=== PATIENT | male | born 1955 | race African-American/Black ===

== ENCOUNTER 2017-09-21 19:44 | Emergency (ER) | payer SELFPAY ==
[~2017-09-21] VITALS: Ht 177.8 cm; Wt 99.8 kg
[~2017-09-21 19:44] MED LIST: ERYTHROMYCIN1 G1 RIGHT EYE; NKM; VICODIN 5-3001 EACH ORAL
[2017-09-21 19:56] VITALS: BP 166/109
[2017-09-21] MEDS ORDERED: Lidocaine 1% Plain 30 ml INJ ONE (20:45)
[2017-09-21 20:55] VITALS: BP 158/98
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
[2017-09-21 21:55] VITALS: BP 167/102
[2017-09-21] MEDS ORDERED: NAPROXEN250 MG ORAL (21:55)
[2017-09-21 22:45] VITALS: BP 167/102
== END 2017-09-21 22:45 | disposition home or self-care (01) ==
LOC: EDBD 19:44 → EMR 20:47
DX: S01.81XA Laceration without foreign body of other part of head, initial encounter (principal); I10 Essential (primary) hypertension; Y04.2XXA Assault by strike against or bumped into by another person, initial encounter
CPT/HCPCS: 12013; 99282; J2001

== ENCOUNTER 2017-09-30 19:16 | Emergency (ER) | payer SELFPAY ==
[~2017-09-30] VITALS: Ht 177.8 cm; Wt 99.8 kg
[~2017-09-30 19:16] MED LIST changes: +NAPROXEN250 MG ORAL
[2017-09-30] MEDS ORDERED: UNOBMED (19:24)
[2017-09-30 19:30] VITALS: BP 128/87
[2017-09-30 19:45] VITALS: BP 134/87
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
[2017-09-30] MEDS ORDERED: BACITRACIN-P28.35 GM TP (19:48)
== END 2017-09-30 19:45 | disposition home or self-care (01) ==
LOC: EMR 19:38
DX: M79.89 Other specified soft tissue disorders (principal); Z48.02 Encounter for removal of sutures
CPT/HCPCS: 99282

== ENCOUNTER 2017-10-01 10:44 | Emergency (ER) | payer OTHER ==
[~2017-10-01] VITALS: Ht 177.8 cm; Wt 99.8 kg
[~2017-10-01 10:44] MED LIST changes: +BACITRACIN-P28.35 GM TP; +UNOBMED
[2017-10-01 10:52] VITALS: BP 129/84
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
[2017-10-01 12:36] VITALS: BP 125/79
[2017-10-01 12:37] VITALS: BP 129/84
== END 2017-10-01 12:38 | disposition home or self-care (01) ==
LOC: EMR 11:10
DX: H57.12 Ocular pain, left eye (principal); I10 Essential (primary) hypertension
CPT/HCPCS: 99282

== ENCOUNTER 2018-03-01 12:17 | Emergency (ER) | payer OTHER ==
[~2018-03-01] VITALS: Ht 177.8 cm; Wt 99.8 kg
[2018-03-01 12:47] VITALS: BP 108/77
[2018-03-01] MEDS ORDERED: IBUPROFEN600 MG ORAL (13:38)
[2018-03-01] MEDS ORDERED: AMOXICILLIN500 MG ORAL (13:38)
[2018-03-01 13:40] VITALS: BP 108/77
--- NOTE | 2018-03-01 18:21 | Emergency Room Report ---
History of Present Illness General Chief Complaint: Headache Source: Patient Present Illness HPI The patient is a 62-year-old male presenting for symptoms including headache, sore throat, and cough for the past one week. Headache described as a 5 out of 10 dull ache primarily to the right side of the head. No known provoking factors. He denies neck pain or stiffness. Sore throat described as well as a 5 out of 10 dull ache. Worse with swallowing. He admits to a dry cough. He denies other symptoms including N, V, F, chills, SOB, photophobia, dizziness , blurred vision Allergies: Coded Allergies: No Known Allergies (Unverified , 02/06/16) Patient History Past Medical History: see triage record Pertinent Family History: none Reviewed Nursing Documentation: PMH: Agreed; PSxH: Agreed Nursing Documentation-PMH Past Medical History: No History, Except For Hx Hypertension: Yes Review of Systems All Other Systems: negative except mentioned in HPI Physical Exam Vital Signs Date Time Temp Pulse Resp B/P (MAP) Pulse Ox O2 Delivery O2 Flow Rate FiO2 03/01/18 12:30 48 20 108/77 97 Room Air Sp02 EP Interpretation: reviewed, normal General Appearance: no apparent distress, alert, GCS 15, non-toxic Head: normocephalic, atraumatic Eyes: bilateral eye normal inspection, bilateral eye PERRL, bilateral eye EOMI ENT: hearing grossly normal, no angioedema, normal voice, uvula midline, tonsillar swelling, pharyngeal erythema Neck: full range of motion, supple/symm/no masses Respiratory: chest non-tender, lungs clear, normal breath sounds, speaking full sentences Cardiovascular #1: regular rate, rhythm, no edema Musculoskeletal: back normal, gait/station normal, normal range of motion, non- tender Neurologic: alert, oriented x3, responsive, motor strength/tone normal, sensory intact, speech normal Psychiatric: judgement/insight normal, memory normal, mood/affect normal, no suicidal/homicidal ideation Skin: normal color, no rash, warm/dry, well hydrated Lymphatic: no adenopathy Medical Decision Making PA Attestation Dr. Orourke is my supervising physician. Patient management was discussed with my supervising physician Diagnostic Impression: Primary Impression: Pharyngitis Qualified Codes: J02.9 - Acute pharyngitis, unspecified ER Course The patient is a 62-year-old male presenting for symptoms including headache, sore throat, and cough for the past one week Differential diagnosis include but not limited to migraine SUNSHINE, cluster SUNSHINE, pharyngitis, sinusitis, AOM, among others Physical exam: Afebrile. No apparent distress HEENT exam: There is bilateral tonsillar edema, erythema. Uvula midline. Moist mucous membranes. There is no cervical lymphadenopathy. Lungs are clear to auscultation bilaterally Skin is warm and dry. No rash Neck soft and supple. Non tender. Motrin given in ED with good relief of pain. The patient will be discharged home with a prescription for amoxicillin and motrin and is given ER precautions. Patient will followup with primary care Last Vital Signs Date Time Temp Pulse Resp B/P (MAP) Pulse Ox O2 Delivery O2 Flow Rate FiO2 03/01/18 13:40 48 20 108/77 97 Room Air Status: improved Disposition: HOME, SELF-CARE Condition: Improved Scripts Amoxicillin* (AMOXIL*) 500 Mg Capsule 500 MG ORAL Q12HR, #18 CAP Prov: INOCENTE CARBALLO 03/01/18 Ibuprofen* (MOTRIN*) 600 Mg Tablet 600 MG ORAL Q8H PRN for For Pain, #30 TAB 0 Refills Prov: INOCENTE CARBALLO 03/01/18 Referrals: NON PHYSICIAN (PCP) Patient Instructions: Pharyngitis, General Headache Without Cause Additional Instructions: I discussed my findings with the patient. All questions and concerns have been answered. Treatment and medication compliance have been addressed. Return to ED if symptoms worsen, new symptoms arise, or if needed for any reason. Patient verbalized understanding of discharge instructions. Please follow up with your primary doctor within 3 days for further evaluation and continued treatment. INOCENTE CARBALLO Mar 01, 2018 18:21
== END 2018-03-01 13:40 | disposition home or self-care (01) ==
LOC: EMR 12:45
DX: J02.9 Acute pharyngitis, unspecified (principal); R51 Headache
CPT/HCPCS: 99283

== ENCOUNTER 2019-11-03 13:47 | Emergency (ER) | payer OTHER ==
[~2019-11-03] VITALS: Ht 177.8 cm; Wt 108.9 kg
[~2019-11-03 13:47] MED LIST changes: +AMOXICILLIN500 MG ORAL; +IBUPROFEN600 MG ORAL
[2019-11-03] MEDS ORDERED: LOSARTAN-HCTZ1 EACH ORAL (14:10)
[2019-11-03] MEDS ORDERED: HYDROcodone/Acetamin 7.5/325 tab ORAL ONE (14:15)
--- NOTE | 2019-11-03 14:15 | Emergency Room Report ---
History of Present Illness General Chief Complaint: Hypertension Source: Patient Present Illness HPI Disclaimer: Please note that this report is being documented using frentsON technology. This can lead to erroneous entry secondary to incorrect interpretation by the dictating instrument. HPI: 64-year-old male history of hypertension presents for evaluation of right knee pain and medication refill. Patient was seen at [facility] on for multiple complaints. He provides paperwork showing labs largely within normal limits with negative troponin, creatinine 1.0, BUN 15 and other labs within normal range. He was prescribed hydrochlorothiazide losartan combination pill but states it was not sent to his pharmacy. He is also complaining of 4 days right knee pain. 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 He reports an aching over the knee and over the lower leg in general without swelling. No injury reported. No heavy lifting reported. No prior history of injury to the knee. Still has full range of motion able to stand and walk. He was prescribed 600 mg ibuprofen but is only been taking 1 or 2 pills every other day. He also reported he had an abnormal EKG. A photocopy shows EKG with nonspecific T wave changes and sinus bradycardia but otherwise no ST segment changes. He has an appointment to see his PMD in 2 days. PMH: Hypertension PSH: Reviewed Allergies: Reviewed Social Hx: Reviewed Allergies: Coded Allergies: No Known Allergies (Unverified , 02/06/16) COVID-19 Screening Contact w/high risk pt: No Experienced COVID-19 symptoms?: No COVID-19 Testing performed CARTOGRAPHIC DRAFTER: No Nursing Documentation-PMH Hx Hypertension: Yes Review of Systems All Other Systems: negative except mentioned in HPI Physical Exam Vital Signs Date Time Temp Pulse Resp B/P (MAP) Pulse Ox O2 Delivery O2 Flow Rate FiO2 11/03/19 13:48 98.4 66 17 170/92 (118) 97 Room Air General: Awake and alert, no acute distress HEENT: NC/AT. EOMI. Cardiovascular: RRR. S1 and S2 normal. No murmur appreciated Resp: Normal work of breathing. No cough, wheezing or crackles appreciated Abdomen: Abdomen is soft, nondistended. Nontender Skin: Intact. No abrasions, laceration or rash over the exposed skin MSK: Normal tone and bulk. Moving all extremities. No obvious deformity. Patella in anatomic position. No effusion, no edema. No laxity. No tenderness in the lower leg, over the medial or lateral malleolus or in the midfoot. Neuro: Awake and alert. Mentating appropriately. Medical Decision Making Diagnostic Impression: Primary Impression: Hypertension Additional Impression: Knee pain ER Course 64-year-old male presenting for evaluation of atraumatic knee pain 4 days duration. He has been using 600 mg ibuprofen though not in the recommended regimen. Also requesting a refill of his hydrochlorothiazide/losartan combination pill which he has not had for some time. He otherwise denies any symptoms of hypertensive urgency or emergency. He denies chest pain, palpitation, shortness of breath, headache, vision changes, new back pain or any other symptoms at this time. He was hypertensive on triage and clonidine was given. EKG was repeated again showing nonspecific ST segment changes but no evidence of acute ischemia. His labs from previous hospitalization were reviewed and were scanned into medical record. They were within normal limits. Regarding the knee pain, no trauma, no findings on physical exam and likely an overuse injury. Does not require imaging at this time. Will provide knee brace, pain medication and patient will be discharged to follow-up on an outpatient basis. Instructed to maintain his appointment in 2 days to see his PMD. Copies of his EKG today were included in discharge paperwork. Instructed to return with new or worsening symptoms. He understands and agrees with this treatment plan. EKG Diagnostic Results EKG Time: 14:18 Rate: bradycardiac Rhythm: NSR ST Segments: no acute changes Other Impression Sinus bradycardia, normal axis, normal intervals, nonspecific T wave inversions in lead I, aVL. No ST segment changes. Rhythm Strip Diag. Results Rhythm Strip Time: 14:18 EP Interpretation: yes Rate: 53 Rhythm: NSR, no PVC's, no ectopy Last Vital Signs Date Time Temp Pulse Resp B/P (MAP) Pulse Ox O2 Delivery O2 Flow Rate FiO2 11/03/19 13:48 98.4 66 17 170/92 (118) 97 Room Air Disposition: HOME, SELF-CARE Condition: Stable Scripts Losartan/Hydrochlorothiazide (LOSARTAN-HCTZ 100-12.5 MG TAB) 1 Each Tablet 1 TAB ORAL DAILY for 30 Days, #30 TAB Prov: Ender Cadena MD 11/03/19 Referrals: [facility], [facility] Ricardo Miranda. [facility] Patient Instructions: Knee Pain, Hypertension, RICE for Routine Care of Injuries Additional Instructions: Please keep your appointment scheduled on November 04 with your PMD to discuss your recent hospitalization, medication refills and knee pain as well as your EKGs. If you have any new or worsening symptoms please return to the emergency department for reevaluation. Please note that this report is being documented using frentsON technology. This can lead to erroneous entry secondary to incorrect interpretation by the dictating instrument. Ender Cadena MD Nov 03, 2019 14:15
[2019-11-03 14:31] VITALS: BP 176/93
[2019-11-03] MEDS ORDERED: Hyzaar 50-12.5mg tab ORAL ONE (14:45)
[2019-11-03 15:18] VITALS: BP 150/87
[2019-11-03 15:20] VITALS: BP 140/82
== END 2019-11-03 15:20 | disposition home or self-care (01) ==
LOC: EMR 14:00
DX: M25.561 Pain in right knee (principal); I10 Essential (primary) hypertension
CPT/HCPCS: 93005; 99283